=== PATIENT | male | born 1975 | race Two or more races ===

== ENCOUNTER 2018-08-14 12:36 | Emergency (ER) | payer MEDICAID ==
[~2018-08-14] VITALS: Ht 180.3 cm; Wt 172.8 kg
[2018-08-14] MEDS ORDERED: ONDANSETRON 4 MG TAB.RAPDIS PO ONE (13:30)
[2018-08-14] MEDS ORDERED: HYDROCODONE/APAP 5/325MG 1 EACH TABLET PO ONE (13:30)
[2018-08-14] MEDS ORDERED: ONDANSETRON 4 MG TAB.RAPDIS ONE (13:39)
[2018-08-14] MEDS ORDERED: HYDROCODONE/APAP 5/325MG 1 EACH TABLET ONE (13:39)
--- NOTE | 2018-08-14 13:45 | NUR ---
MEDICATED ORDERED,TO RADIOLOGY
[2018-08-14 14:25] VITALS: BP 141/84
== END 2018-08-14 14:39 | disposition home or self-care (01) ==
LOC: ER 12:39
DX: S86.811A Strain of other muscle(s) and tendon(s) at lower leg level, right leg, initial encounter (principal); S39.012A Strain of muscle, fascia and tendon of lower back, initial encounter; W01.0XXA Fall on same level from slipping, tripping and stumbling without subsequent striking against object, initial encounter; Y93.89 Activity, other specified; Y92.89 Other specified places as the place of occurrence of the external cause; Y99.8 Other external cause status
CPT/HCPCS: 29505; 72100; 73562; 99283; Q0162

== ENCOUNTER 2019-05-10 13:05 | Inpatient (IN) | payer MEDICAID, OTHER ==
[~2019-05-10] VITALS: Ht 180.3 cm; Wt 172.4 kg
--- NOTE | 2019-05-10 13:35 | NUR ---
PT BIB SELF C/O FEVER, NOTED SINCE LAST NIGHT; WITH COUGH & CONGESTION, PT IS AAOX4, NOT IN RESPIRATORY DISTRESS, HOOKED TO MONITOR, KEPT RESTED AND COMFORTABLE, WILL CONTINUE TO MONITOR.
--- NOTE | 2019-05-10 13:41 | NUR ---
FEVER SINCE LAST NIGHT- WITH COUGH ; FEBRILE 103 F.
[2019-05-10] MEDS ORDERED: ACETAMINOPHEN 325 MG TABLET PO ONE (14:00)
[2019-05-10] MEDS ORDERED: IBUPROFEN 600 MG TABLET PO ONE ×2 (14:00→14:06)
[2019-05-10] MEDS ORDERED: ACETAMINOPHEN ES 500 MG TABLET ONE (14:06)
--- NOTE | 2019-05-10 14:10 | NUR ---
RAPID STREP AND INFLUENZA OBTAINED AND SENT TO LAB.
--- NOTE | 2019-05-10 14:12 | NUR ---
HYDRATION PLANT OPERATOR AT BEDSIDE FOR XRAY.
--- NOTE | 2019-05-10 14:16 | NUR ---
PAGED [facility].
--- NOTE | 2019-05-10 14:28 | NUR ---
IV LINE ESTABLISHED, BLOOD DRAWN AND SENT TO LAB.
[2019-05-10] MEDS ORDERED: IV NS 0.9% 1,000 ML BAG IV ONE (14:30)
[2019-05-10 14:37] LABS: BASOPHILS # (AUTO) 0.1 /CMM (0.0-0.2); BASOPHILS % (AUTO) 0.5 % (0.0-2.0); EOSINOPHILS % (AUTO) 0.1 % (0.0-6.0); HEMATOCRIT 47 % (39-51); LYMPHOCYTES # (AUTO) 1.2 /CMM (0.8-4.8); LYMPHOCYTES % (AUTO) 5.1 % (20.0-44.0); MEAN CORPUSCULAR HGB CONC 32 g/dl (31.0-36.0); MEAN CORPUSCULAR VOLUME 84 fL (80-96); MONOCYTES # (AUTO) 2.9 /CMM (0.1-1.30); NEUTROPHILS % (AUTO) 82.3 % (43.0-81.0); PLATELET COUNT (AUTO) 239 /CMM (150-450); RED BLOOD CELL COUNT(AUTO) 5.52 MIL/uL (4.5-6.0); WHITE BLOOD COUNT (AUTO) 24.3 K/uL (4.3-11.0)
[2019-05-10 14:46] LABS: CALCIUM, SERUM 9.1 mg/dL (8.5-10.1); CARBON DIOXIDE 24 mmol/L (21-32); CHLORIDE 102 mmol/L (98-107); GLUCOSE 137 mg/dL (74-106); POTASSIUM 3.5 mmol/L (3.5-5.1); SODIUM SERUM 139 mmol/L (136-145); UREA NITROGEN, BLOOD 11 mg/dL (7-18)
[2019-05-10 15:05] LABS: ALANINE AMINOTRANSFERASE 29 U/L (12-78); ALBUMIN 3.9 g/dL (3.4-5.0); ALKALINE PHOSPHATASE 62 U/L (46-116); ASPARTATE AMINOTRANSFERASE 15 U/L (15-37); BILIRUBIN,DIRECT 0.2 mg/dL (0.0-0.2); BILIRUBIN,TOTAL 0.8 mg/dL (0.2-1.0); TOTAL PROTEIN, SERUM 7.9 g/dL (6.4-8.2)
[2019-05-10] MEDS ORDERED: CT SWABBABLE VALVE TRANS SET 1 EA INFUS.SET MC ONE ×2 (15:13→15:42)
[2019-05-10] MEDS ORDERED: IOHEXOL-350 100 ML VIAL IV ONE ×3 (15:13→15:48)
[2019-05-10] MEDS ORDERED: IV NS 0.9% 250 ML IV ONE ×2 (15:14→15:43)
[2019-05-10] MEDS ORDERED: PIPERACILLIN /TAZOBACTAM 3.375 G in IV D5W 50 ML IV ONE (15:30)
--- NOTE | 2019-05-10 15:30 | NUR ---
CALLED NURSING SUP FOR TELE BED.
--- NOTE | 2019-05-10 15:33 | NUR ---
PT IS WHEELED TO CT SCAN VIA [facility].
[2019-05-10 15:45] LABS: LYMPHOCYTES % (MANUAL) 5 % (16-48); MONOCYTES % (MANUAL) 19 % (0-11.0); NEUTROPHILS % (MANUAL) 76 (42-76)
[2019-05-10 16:17] LABS: APPEARANCE,URINE Clear (CLEAR); BILIRUBIN,URINE Negative (NEGATIVE); BLOOD, URINE Negative Ery/uL (NEGATIVE); COLOR,URINE Yellow (YELLOW); KETONES,URINE Negative (NEGATIVE); LEUKOCYTE ESTERASE ,URINE Negative (NEGATIVE); NITRITE, URINE Negative (NEGATIVE); PROTEIN,URINE Negative (NEGATIVE); UGLUCOSE Negative (NEGATIVE); UROBILINOGEN,URINE 0.2 EU/dL (0.2)
[2019-05-10] MEDS ORDERED: HYDROCODONE/APAP 5/325MG 1 EACH TABLET PO PRN (16:30)
[2019-05-10] MEDS ORDERED: ONDANSETRON HCL/PF 4 MG/2 ML VIAL IVP PRN (16:30)
[2019-05-10] MEDS ORDERED: Z GUARD REMEDY 2 OZ OINT TP PRN (16:30)
[2019-05-10] MEDS ORDERED: IV NS 0.9% 1,000 ML IV PRN (16:30)
[2019-05-10] MEDS ORDERED: MAG HYDROX/AL HYDROX/SIMETH 30 ML UDC PO PRN (16:30)
[2019-05-10] MEDS ORDERED: MAGNESIUM HYDROXIDE 30 ML UDC PO PRN (16:30)
--- NOTE | 2019-05-10 16:34 | NUR ---
AT BEDSIDE FOR EVAL
--- NOTE | 2019-05-10 17:20 | NUR ---
NURSING SUP GAVE M/S BED 204-2.
--- NOTE | 2019-05-10 17:25 | NUR ---
REPORT GIVEN TO VIRAJ JURADO FOR RONALD.
--- NOTE | 2019-05-10 17:55 | NUR ---
MS NIGHT MANAGER NOTES RECEIVED PATIENT VIA W/C ACCOMPANIED BY FOR C/O PNA. NO SOB. ORIENTED PATIENT TO ROOM, UNIT AND CALL LIGHT. PATIENT DENIES ANY C/O PAIN NOR DISCOMFORT. NO SOB. BED IN LOWEST POSITION, LOCKED. SKIN INTACT. RIGHT AC # 18 INTACT AND PATENT. CALL LIGHT WITHIN REACH. AMBULATORY WITH STEADY GAIT. RESTING COMFORTABLY IN BED.
--- NOTE | 2019-05-10 19:20 | NUR ---
MS BOX BLANK MACHINE FEEDER NOTES PATIENT RESTING COMFORTABLY IN BED. NO S/S OF RESPIRATORY DISTRESS. ALERT AND AWAKE ORIENTED X4. PATIENT DENIES ANY C/O PAIN NOR DISCOMFORT. N BED IN LOWEST POSITION, LOCKED. SKIN INTACT. RIGHT AC # 18 INTACT AND PATENT INFUSING IVF ORDERED. CALL LIGHT WITHIN REACH. BED IN LOWEST POSITION, LOCKED. BED SIDERAILS UP X2. IN NO APPARENT DISTRESS.
--- NOTE | 2019-05-10 19:30 | NUR ---
MS RN OPENING NOTES PATIENT AWAKE IN BED. FAMILY PRESENT AT THE BEDSIDE. A/O X4. ABLE TO VERBALIZE NEEDS. IV PRESENT ON RIGHT AC, SIZE 18, INTACT & PATENT, NS RUNNING AT 100 CC/HR. NO S/S OF ACUTE RESPIRATORY DISTRESS. PATIENT COMPLAINING OF A SLIGHT HEADACHE. BED LOCKED, SIDE RAILS X2, CALL LIGHT WITHIN REACH. WILL CONTINUE TO MONITOR.
[2019-05-10] MEDS: ACETAMINOPHEN 325 MG TABLET PO PRN (19:44)
--- NOTE | 2019-05-10 19:44 | NUR ---
MS RN NOTES PRN TYLENOL 650MG GIVEN PER PATIENT'S REQUEST FOR HEADACHE
[2019-05-10 20:00] VITALS: BP 145/80
[2019-05-10] MEDS: PIPERACILLIN /TAZOBACTAM 3.375 G in IV D5W 100 ML IV SCH (21:11)
[2019-05-11] MEDS: ACETAMINOPHEN 325 MG TABLET PO PRN ×3 (03:22→16:50)
--- NOTE | 2019-05-11 03:35 | NUR ---
RT PLACED PATIENT ON CPAP 12 , 30% FIO2 . ALARMS ARE ON AND AUDIBLE. PATIENT TOLERATED CURRENT THERAPY , WILL CONTINUE TO MONITOR. Addendum: 05/11/19 at 0337 by JAS COMBS RT Amended: Links added.
[2019-05-11] MEDS: PIPERACILLIN /TAZOBACTAM 3.375 G in IV D5W 100 ML IV SCH ×3 (05:21→20:57)
--- NOTE | 2019-05-11 06:31 | NUR ---
MS RN CLOSING NOTES PATIENT SLEEPING IN BED ATTACHED TO CPAP MACHINE. REMAINED STABLE DURING ENTIRE SHIFT. NO S/S OF SOB AND NO COMPLAINTS OF PAIN AT THIS TIME. IV ON RIGHT AC, SIZE 18, INTACT & PATENT, WITH IVPB ZOSYN RUNNING AT 25 CC/HR. BED LOCKED SIDE RAILS X2, CALL LIGHT WITHIN REACH. WILL ENDORSE TO DAY SHIFT NURSE TO FOLLOW PLAN OF CARE.
--- NOTE | 2019-05-11 07:08 | NUR ---
MS RN OPENING NOTES PATIENT RECEIVED ASLEEP IN BED ATTACHED TO CPAP MACHINE, EASILY AWAKENS AND TOLERATING CPAP ORDERED. IV ACCESS ON RIGHT AC G# 18 INTACT & PATENT, IV ATB ZOSYN RUNNING ORDERED, NO S/S OF INFILTRATIONS NOTED. BED LOCKED AND IN LOW POSITION WITH SIDE RAILS UP X2. CALL LIGHT WITHIN REACH. WILL CONTINUE TO MONITOR.
[2019-05-11 07:15] LABS: BASOPHILS # (AUTO) 0.1 /CMM (0.0-0.2); BASOPHILS % (AUTO) 0.4 % (0.0-2.0); EOSINOPHILS % (AUTO) 0.5 % (0.0-6.0); HEMATOCRIT 41 % (39-51); HEMOGLOBIN 13.4 g/dL (13.5-17.5); LYMPHOCYTES # (AUTO) 2.4 /CMM (0.8-4.8); LYMPHOCYTES % (AUTO) 12.9 % (20.0-44.0); MEAN CORPUSCULAR HGB CONC 33 g/dl (31.0-36.0); MEAN CORPUSCULAR VOLUME 84 fL (80-96); MONOCYTES % (AUTO) 10.8 % (2.0-12.0); NEUTROPHILS # (AUTO) 13.8 /CMM (1.8-8.9); NEUTROPHILS % (AUTO) 75.4 % (43.0-81.0); PLATELET COUNT (AUTO) 196 /CMM (150-450); RED BLOOD CELL COUNT(AUTO) 4.89 MIL/uL (4.5-6.0); WHITE BLOOD COUNT (AUTO) 18.3 K/uL (4.3-11.0)
[2019-05-11 07:31] LABS: CALCIUM, SERUM 8.6 mg/dL (8.5-10.1); CREATININE 0.9 mg/dL (0.6-1.3); MAGNESIUM 1.7 mg/dL (1.8-2.4); PHOSPHORUS 3.2 mg/dL (2.5-4.9); POTASSIUM 3.7 mmol/L (3.5-5.1)
[2019-05-11 08:00] VITALS: BP 141/89
--- NOTE | 2019-05-11 08:05 | NUR ---
pt is awake and alert found on room air with spo2 96%. no sob noted Addendum: 05/11/19 at 0806 by LEN ROSE RT Amended: Links added.
[2019-05-11] MEDS ORDERED: Magnesium 1GM/D5W 100ML PREMIX 100 ML IV SCH (09:46)
[2019-05-11] MEDS: Magnesium 1GM/D5W 100ML PREMIX 100 ML IV SCH ×2 (09:52→10:53)
--- NOTE | 2019-05-11 10:16 | NUR ---
MS RN NOTES PRN TYLENOL 650MG GIVEN @ 1011 PER PATIENT'S REQUEST FOR HEADACHE. WILL CONTINUE TO MONITOR
--- NOTE | 2019-05-11 12:07 | NUR ---
RN NOTES PATIENT WITH LOW LEVEL MAGNESIUM 1.7 TODAY. ADMINISTERED MG 1G/100ML D5W X2 DOSES PER MD ORDERED. WILL CONTINUE TO MONITOR
[2019-05-11 16:00] VITALS: BP 128/71
--- NOTE | 2019-05-11 16:51 | NUR ---
RN NOTES PT IN BED AND COMPLAINED OF FRONTAL HEADACHE. PRN TYLENOL 650MG PO GIVEN AT 1650 PER REQUEST BY PT. WILL CONTINUE TO MONITOR
--- NOTE | 2019-05-11 18:38 | NUR ---
MS RN CLOSING NOTES PATIENT IN BED AWAKE WITH FAMILY AT BEDSIDE AT THIS TIME. A/O X4. ABLE TO VERNALIZED NEEDS AND CONCERNS. ON ROOM AIR, TOLERATING WELL WITH NO ACUTE RESPIRATORY DISTRESS NOTED THROUGHOUT THE DAY. PT FOR CPAP DURING NIGHTTIME. IV ACCESS ON RIGHT AC G# 18 INTACT & PATENT, IVF OF NS @ 100ML/HR INFUSING WELL, NO S/S OF INFILTRATIONS NOTED. SAFETY MEASURES IN PLACE: BED LOCKED AND IN LOW POSITION WITH SIDE RAILS UP X2. CALL LIGHT WITHIN REACH. ALL NEEDS NAD CARE ATTENDED WELL. WILL ENDORSE TO WELDER REPAIR NURSE FOR RONALD.
--- NOTE | 2019-05-11 19:33 | NUR ---
MS2/RN RECEIVED PATIENT AWAKE, ALERT, ORIENTED, COMFORTABLE, NO C/O PAIN, NO DISTRESS NOTED, CALL LIGHT IN REACH. WILL MONITOR.
[2019-05-11 20:00] VITALS: BP 152/86
--- NOTE | 2019-05-12 03:41 | NUR ---
MS2/RN PATIENT JUST ABOUT TO SLEEP AT THIS TIME, CPAP WAS PUT ON BY RT.
[2019-05-12] MEDS: PIPERACILLIN /TAZOBACTAM 3.375 G in IV D5W 100 ML IV SCH (05:16)
--- NOTE | 2019-05-12 06:10 | NUR ---
MS2/RN PATIENT IS STILL SLEEPING AT THIS TIME, APPEAR COMFORTABLE, NO SIGNS OF DISTRESS NOTED, CALL LIGHT IN REACH, CPAP ON. ALL NEEDS ATTENDED AT THIS TIME, WILL CONTINUE TO MONITOR.
--- NOTE | 2019-05-12 07:20 | NUR ---
RN OPENING NOTES PATIENT RECEIVED ASLEEP IN BED ATTACHED TO CPAP MACHINE, EASILY AWAKENS AND TOLERATING CPAP ORDERED. NOT IN ANY FORM OF DISTRESS. NO SOB. DENIED PAIN OR DISCOMFORT AT THIS TIME. IV ACCESS ON RIGHT AC G# 18 INTACT & PATENT, NO S/S OF INFILTRATIONS NOTED. BED LOCKED AND IN LOW POSITION WITH SIDE RAILS UP X2. CALL LIGHT WITHIN REACH. WILL CONTINUE TO MONITOR.
[2019-05-12 08:00] VITALS: BP 137/68
[2019-05-12 08:22] LABS: BASOPHILS # (AUTO) 0.1 /CMM (0.0-0.2); BASOPHILS % (AUTO) 0.6 % (0.0-2.0); HEMATOCRIT 42 % (39-51); HEMOGLOBIN 13.7 g/dL (13.5-17.5); LYMPHOCYTES # (AUTO) 2.6 /CMM (0.8-4.8); LYMPHOCYTES % (AUTO) 28.9 % (20.0-44.0); MEAN CORPUSCULAR HGB CONC 33 g/dl (31.0-36.0); MEAN CORPUSCULAR VOLUME 84 fL (80-96); MONOCYTES # (AUTO) 1.1 /CMM (0.1-1.30); NEUTROPHILS % (AUTO) 56.5 % (43.0-81.0); PLATELET COUNT (AUTO) 208 /CMM (150-450); RED BLOOD CELL COUNT(AUTO) 4.97 MIL/uL (4.5-6.0); WHITE BLOOD COUNT (AUTO) 8.9 K/uL (4.3-11.0)
[2019-05-12 08:57] LABS: CALCIUM, SERUM 8.2 mg/dL (8.5-10.1); CREATININE 0.8 mg/dL (0.6-1.3); MAGNESIUM 2.1 mg/dL (1.8-2.4); PHOSPHORUS 3.6 mg/dL (2.5-4.9); POTASSIUM 3.8 mmol/L (3.5-5.1)
[2019-05-12] MEDS ORDERED: LEVO750T21 PO (10:39)
--- NOTE | 2019-05-12 12:00 | NUR ---
DISCHARGED PATIENT IN STABLE CONDITION, PICKED UP BY . DISCHARGE INSTRUCTIONS GIVEN, TO F/U WITH PCP AND CONTINUE MEDS PRESCRIBED, AND TO RETURN TO ER FOR WORSENING OF SYMPTOMS. PATIENT VERBALIZED UNDERSTANDING OF DC INSTRUCTIONS. DC PAPERWORK AND RESOURCE MATERIALS PROVIDED. ALL BELONGINGS RETURNED, FORMS SIGNED. IV ACCESS REMOVED, TIP INTACT, NO COMPLICATIONS. NAME BAND REMOVED.
== END 2019-05-12 12:00 | disposition home or self-care (01) | DRG 720 ==
LOC: ER 13:10 → TELE2 17:41 → MEDSG2 19:00
PROVIDERS: ADMIT Internal Medicine; ATTEND Internal Medicine
PROC: 5A09457 Assistance with Respiratory Ventilation, 24-96 Consecutive Hours, Continuous Positive Airway Pressure (ICD-10-PCS; principal; 2019-05-10)
DX: A41.9 Sepsis, unspecified organism (principal); J96.21 Acute and chronic respiratory failure with hypoxia; J15.6 Pneumonia due to other Gram-negative bacteria; G47.33 Obstructive sleep apnea (adult) (pediatric); E66.01 Morbid (severe) obesity due to excess calories; Z68.43 Body mass index [BMI] 50.0-59.9, adult; E83.42 Hypomagnesemia; R00.0 Tachycardia, unspecified
CPT/HCPCS: 36415; 71045-TC; 80048-TC; 80076-TC; 81000-TC; 83605-TC; 83735-TC; 84100-TC; 84484-TC; 85025-TC; 85730-TC; 86403-TC; 87040-TC; 87070-TC; 87081-TC; 93307-TC; G0378; J2543; J3475; J7030; J7050; J7060; Q9967

== ENCOUNTER 2022-01-14 19:49 | Emergency (ER) | payer BC, OTHER ==
[~2022-01-14] VITALS: Ht 180.3 cm; Wt 190.5 kg
[~2022-01-14 19:49] MED LIST: LEVO750T21 PO
--- NOTE | 2022-01-14 21:00 | NUR ---
SEEN BY DR CROFT AT BEDSIDE
--- NOTE | 2022-01-14 21:12 | NUR ---
IV CANNULA G20 INSERTED ON LEFT AC.
[2022-01-14 21:17] LABS: BASOPHILS # (AUTO) 0.1 K/uL (0.0-0.2); BASOPHILS % (AUTO) 0.5 % (0.0-2.0); EOSINOPHILS % (AUTO) 0.8 % (0.0-6.0); HEMATOCRIT 47 % (39-51); HEMOGLOBIN 15.1 g/dL (13.5-17.5); LYMPHOCYTES # (AUTO) 2.6 K/uL (0.8-4.8); LYMPHOCYTES % (AUTO) 21.2 % (20.0-44.0); MEAN CORPUSCULAR HGB CONC 33 g/dl (31.0-36.0); MEAN CORPUSCULAR VOLUME 81 fL (80-96); MONOCYTES # (AUTO) 1.2 K/uL (0.1-1.30); MONOCYTES % (AUTO) 9.5 % (2.0-12.0); NEUTROPHILS # (AUTO) 8.4 K/uL (1.8-8.9); PLATELET COUNT (AUTO) 266 K/uL (150-450); RED BLOOD CELL COUNT(AUTO) 5.71 MIL/uL (4.5-6.0); WHITE BLOOD COUNT (AUTO) 12.4 K/uL (4.3-11.0)
--- NOTE | 2022-01-14 21:27 | NUR ---
BROUGHT PT TO CT DEPT
--- NOTE | 2022-01-14 21:34 | NUR ---
BACK FROM CT DEPT
[2022-01-14] MEDS ORDERED: CLONIDINE HCL 0.1 MG TABLET ONE (21:37)
[2022-01-14 21:44] LABS: CALCIUM, SERUM 9.4 mg/dL (8.5-10.1); CARBON DIOXIDE 26 mmol/L (21-32); CHLORIDE 103 mmol/L (98-107); CREATININE 0.8 mg/dL (0.6-1.3); GLUCOSE 146 mg/dL (74-106); POTASSIUM 3.4 mmol/L (3.5-5.1); SODIUM SERUM 138 mmol/L (136-145); UREA NITROGEN, BLOOD 10 mg/dL (7-18)
[2022-01-14 22:00] LABS: ALANINE AMINOTRANSFERASE 49 U/L (12-78); ALBUMIN 4.1 g/dL (3.4-5.0); ALKALINE PHOSPHATASE 57 U/L (46-116); ASPARTATE AMINOTRANSFERASE 24 U/L (15-37); BILIRUBIN,DIRECT 0.1 mg/dL (0.0-0.2); BILIRUBIN,TOTAL 0.4 mg/dL (0.2-1.0); TOTAL PROTEIN, SERUM 8.3 g/dL (6.4-8.2)
[2022-01-14] MEDS ORDERED: CLONIDINE HCL 0.1 MG TABLET PO ONE (22:00)
[2022-01-14] MEDS ORDERED: ACETAMINOPHEN 325 MG TABLET PO ONE (22:00)
[2022-01-14] MEDS ORDERED: ACETAMINOPHEN ES 500 MG TABLET ONE (22:15)
[2022-01-15] MEDS ORDERED: AMLO-212 PO (00:28)
[2022-01-15 01:31] VITALS: BP 141/89
--- NOTE | 2022-01-15 01:31 | NUR ---
IV CANNULA REMOVED
--- NOTE | 2022-01-15 01:31 | NUR ---
Patient discharged to home in stable condition. Written and verbal after care instructions given. Patient verbalizes understanding of instruction.
== END 2022-01-15 01:32 | disposition home or self-care (01) ==
LOC: ER 20:02
DX: R51.9 Headache, unspecified (principal); I10 Essential (primary) hypertension; R07.89 Other chest pain; I45.10 Unspecified right bundle-branch block
CPT/HCPCS: 36415; 70450-TC; 71045-TC; 80048-TC; 80076-TC; 83880; 84484-TC; 85025-TC; 85730-TC